=== PATIENT | male | born 1985 | race Caucasian/White ===

== ENCOUNTER 2022-02-03 10:03 | Emergency (ER) | payer SELFPAY ==
[2022-02-03 10:16] VITALS: BP 139/82; PULSE 70; RESP 18; TEMP 37.1; O2SAT 100
--- NOTE | 2022-02-03 10:25 | ED.SKABFB ---
HPI - Skin/Abscess/Foreign Bdy General Chief complaint: Skin/Abscess/Foreign Body Stated complaint: Rt Forearm Swelling and Pain Time Seen by Provider: 02/03/22 10:25 History of Present Illness HPI narrative: Evan Rivera is a 36 yo male with no PMH who comes to express care with a potential infection of R forearm. Patient had a recent extension of a forearm tattoo and states that a few days ago that he has pulled in hair out of his arm although both arms are shaved. He states that he does not use IV drugs. He has a small area of induration underneath of part of tattoo but he is got a wide area of erythema. He has been using peroxide to clean the area Related Data Allergies Allergy/AdvReac Type Severity Reaction Status Date / Time No Known Allergies Allergy Verified 02/03/22 10:23 Review of Systems Review of Systems: CONSTITUTIONAL: Denies fever, chills, sweats. EYES: Denies visual changes, redness, discharge. ENT: Denies rhinorrhea, congestion, sore throat, otalgia. CARDIOVASCULAR: Denies chest pain, palpitations, edema. RESPIRATORY: Denies dyspnea, wheezing, cough GASTROINTESTINAL: Denies abdominal pain, nausea, vomiting, diarrhea. GENITOURINARY: Denies dysuria, hematuria, abnormal discharge SKIN: Denies rash or itching. He has what appears to be a skin infection either from tattoo, ingrown hair or other cause in right lower forearm NEUROLOGIC: Denies numbness, or focal weakness. PSYCHIATRIC: Denies anxiety or depression. PMFSH Past Medical History Medical History No acute medical problems Social History Social History (Updated 02/03/22 @ 10:34 by Lavern Flores CNP) Smoking status: Current every day smoker Tobacco type: e-cigarettes/vaping Alcohol intake: current Alcohol use details: States he uses alcohol more than socially Comments At time of signature, I agree with nursing past medical, surgical, social and family history. There is no relevant family history pertinent to the presenting complaint. Exam Narrative: GENERAL: This is a well-nourished, well-developed patient, in mild distress. HEAD: normocephalic, atraumatic. EYES: Sclera clear/white. Vision is grossly intact. EARS: External ears normal, . Hearing grossly intact. NOSE: External nose normal without nasal discharge, nares without redness, no rhinorrhea. THROAT: Mucous membranes moist, NECK: Neck supple, non-tender CARDIOVASCULAR: Regular rate and rhythm without murmurs, gallops, or rubs. RESPIRATORY: Clear to auscultation. Breath sounds equal bilaterally. No wheezes, rales, or rhonchi. GASTROINTESTINAL: Not done SKIN: warm, Patient has a apparent skin infection with an induration of 2 x 3 but a area of the erythema that nurse measured is 12 x 8; there is no fluctuance; under to touch NEURO: awake, alert, and oriented to person, place and time. There were no obvious focal neurologic abnormalities. Steady gait EXTREMITIES: Normal range of motion. BACK: Nontender without deformity Course Course Emergency Course: Patient comes with a right forearm apparent skin infection Discussed treatment including warm soaks and use of 2 antibiotics (from Bactrim and Keflex)-defined area is not fluctuant so trying to drain it is early; antibiotics and warm soaks should clear the area and patient should wash area daily with soap and water pat it dry and keep covered if he is outside or at work Level of Care: Express Care Visit Vital Signs Vital signs: Vital Signs Temperature 98.7 F 02/03/22 10:16 Pulse Rate 70 02/03/22 10:16 Respiratory Rate 18 02/03/22 10:16 Blood Pressure 139/82 02/03/22 10:16 Pulse Oximetry 100 02/03/22 10:16 Oxygen Delivery Room Air 02/03/22 10:16 Temperature 98.7 F 02/03/22 10:16 Pulse Rate 70 02/03/22 10:16 Respiratory Rate 18 02/03/22 10:16 Blood Pressure 139/82 02/03/22 10:16 Pulse Oximetry 100 02/03/22 10:16 Oxygen Del
== END 2022-02-03 10:47 | disposition home or self-care (01) ==
PROVIDERS: Emergency Provider Nurse Practitioner
DX: L03.113 Cellulitis of right upper limb (principal); F17.290 Nicotine dependence, other tobacco product, uncomplicated; Z86.16 Personal history of COVID-19
CPT/HCPCS: 99213; G0463